=== PATIENT | female | born 1975 | race Caucasian/White ===

== ENCOUNTER 2022-01-29 02:38 | Emergency (ER) | payer MEDICAID ==
[~2022-01-29] VITALS: Ht 162.6 cm; Wt 75.0 kg
[2022-01-29 02:45] VITALS: BP 123/72
== END 2022-01-29 05:28 | disposition left against medical advice (07) ==
LOC: ER 02:38
DX: Z53.21 Procedure and treatment not carried out due to patient leaving prior to being seen by health care provider (principal)